=== PATIENT | female | born 1965 | race Caucasian/White ===

== ENCOUNTER 2016-05-21 06:31 | Outpatient (CLI) ==
[2015-07-01 16:47] VITALS: BMI 38.5
--- NOTE | 2016-05-21 09:56 | STRESSECHO ---
Date of Test: 05/21/16 Reason for Exam: CHEST PAIN, HTN, SOB Ordering Physician: KANG JAMES Current Medications: PHENTERMINE, BIAXIN, XANAX, CYTOMEL, VICTOZA, GLUCOPHAGE, LYRICA, HYZAAR Resting EKG: SINUS RHYTHM/NO ACUTE CHANGES Target Heart Rate: 145/171 STAGE MPH/GRADE HEART RATE BLOOD PRESSURE RHYTHM S-T SEGMENT +/- UP DOWN SYMPTOMS,COMMENTS At Rest 90/MIN 122/68 SR X NONE 1 1.7/10% 140/MIN 112/58 SR X NONE 2 2.5/12% 3 3.4/14% 4 4.2/16% 5 5.0/18% Immediately after 160 SR X FATIGUE Durations of Exercise: 5:02 Maximum Heart Rate Reached: 160 Reason for Termination: FATIGUE 2 MIN POST EXERCISE, HR/MIN 118, BP 130/68 INTERPRETATION: 97% OXYGEN SATURATION WITH EXERCISE ON ROOM AIR METS 7.0 1. NO EVIDENCE OF ISCHEMIA BY ST-T WAVE 2. NO CHEST PAIN OR CHEST DISCOMFORT 3. BLOOD PRESSURE RESPONSE: NORMAL 4. NO ARRHYTHMIAS NORMAL LEFT VENTRICULAR CONTRACTILITY--RESTING AND POST EXERCISE MTDD
--- NOTE | 2016-05-21 09:59 | ECHOSTRESS ---
Date of Exam: 05/21/16 Ordering Physician: KANG JAMES Reason for Echo: CHEST PAIN, HTN, SOB, STRESS TEST--NO ISCHEMIA M-Mode Normal Adult Results LV Dimensions Normal Adult Results AoV Opening excursions >1.6 LVEDD-base- 3.5-5.8 Ao root dimensions 2.0-3.7 LVESD-base- 3.1-4.6 L. Atrium dimensions 1.9-3.8 Post. Wall thickness 0.8-1.1 IV septum (thickness) 0.7-1.2 Post. Wall excursion 0.72-1.3 Septal motion Systolic motion R. Ventricular cavity 1.5-2.0 LVEF 60% Paradoxical septal wall motion 2-D: NORMAL LEFT VENTRICULAR CONTRACTILITY--RESTING AND POST EXERCISE M-MODE: MV: AV: TV: PV: CHAMBER SIZE: WALL MOTION: NORMAL LEFT VENTRICULAR CONTRACTILITY--RESTING AND POST EXERCISE PERICARDIUM: INTERPRETATION: 1. NORMAL LEFT VENTRICULAR CONTRACTILITY--RESTING AND POST EXERCISE MTDD
== END 2016-05-21 06:32 | disposition home or self-care (01) ==
LOC: CAR 06:31
PROVIDERS: ATTEND Family Medicine
DX: R07.9 Chest pain, unspecified (principal)

== ENCOUNTER 2017-06-05 15:54 | Emergency (ER) ==
[2017-06-05 16:00] VITALS: BP 166/96; TEMP 98; BMI 38.0
--- NOTE | 2017-06-05 16:31 | DI ---
Exam: Two x-rays of the left forearm. Comparison: None available. Reason for exam: Fall. FINDINGS: No acute fracture or malalignment. The cortices of the left radius and ulna appear intact . No unexplained calcific soft tissue density or radiopaque retained foreign body. Impression: No acute fracture or malalignment is seen in the left radius or ulna.
--- NOTE | 2017-06-05 16:32 | DI ---
Exam: Three x-rays of the left wrist. Comparison: 09/25/2013. Reason for exam: Fall. FINDINGS: Similar appearing osseous densities seen adjacent to the fifth carpal-metacarpal joint spa ce. No new fracture or malalignment is seen. The joint spaces are well maintained. Impression: 1. Similar appearing/increased density adjacent to the fifth carpal-metacarpal joint space has a chr onic appearance. 2. No acute fracture or dislocation is seen.
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
== END 2017-06-05 16:50 | disposition home or self-care (01) ==
LOC: ED 15:54
DX: S63.502A Unspecified sprain of left wrist, initial encounter (principal); W50.0XXA Accidental hit or strike by another person, initial encounter; Y99.0 Civilian activity done for income or pay
CPT/HCPCS: 99283

== ENCOUNTER 2017-06-24 12:15 | Outpatient (CLI) ==
--- NOTE | 2017-06-24 14:27 | MRI ---
EXAM: MRI of the left wrist without contrast COMPARISON: Radiographs of the left forearm, wrist and hand 06/05/2017. HISTORY: Acute pain, injury. TECHNIQUE: Multiplanar noncontrast MR images of the left wrist were acquired using a 1.2 Lorri magne t. The submitted images are moderately limited by patient motion artifact and multiple sequences wer e repeated. FINDINGS: Small well corticated ossification adjacent to the base of the fifth metacarpal as noted o n previous radiographs which may represent sequela of an old avulsion injury or calcific tendonitis. There are mild degenerative changes of the wrist with most pronounced osteophytes at the first carpo metacarpal and scaphoid - trapezium - trapezoid articulations with subchondral cystic change involvin g the trapezoid at that level. No evidence of an acute fracture or osteomyelitis. Small radiocarpal , midcarpal and distal radioulnar joint effusions. No abnormal widening of the scapholunate or lunot riquetral intervals. No evidence of a full-thickness tear of the scapholunate ligament, lunotriquetr al ligament or triangular fibrocartilage disc on this non arthrographic study. Suspected intrasubsta nce degeneration of the triangular fibrocartilage disc. 0.9 x 0.8 x 0.7 cm multi septated T2 hyperin tense lesion along the volar aspect the radioscaphoid articulation and radial styloid which suggest a small ganglion/synovial cyst. Extensor carpi ulnaris tendinosis with trace tenosynovitis and some e lupe throughout the adjacent soft tissues. Mild thinning/flattening of the tendon at the level of th e ulnar styloid related to degenerative fraying/chronic partial tear without a full-thickness tendon tear or tendon retraction. Trace extensor carpi radialis longus/brevis tendinosis. Mild changes of DeQuervain's tenosynovitis with mild tendinosis and tenosynovitis of the abductor pollicis longus and extensor pollicis brevis at the first dorsal extensor compartment. Mild thickening hyperintense sign al of the median nerve. The carpal tunnel. Correlate for signs of carpal tunnel syndrome. 0.7 x 0.6 cm focus of T2 hyperintense signal associated with the extensor digitorum tendon slips at a position 2.8 cm proximal to the radiocarpal articulation suggesting tenosynovitis or small ganglion/synovial cyst. Low-level subcutaneous edema dorsally. IMPRESSION: 1. No acute osseous abnormality. Mild degenerative changes of the wrist as described. 2. Small joint effusions, nonspecific. 3. Small ganglion/synovial cyst along the volar aspect the radioscaphoid articulation. Tenosynoviti s versus small ganglion/synovial cyst along the extensor digitorum at the level of the distal forearm as described. 4. Well corticated ossification adjacent to the base of the fifth metacarpal as noted on previous ra diographs which may represent sequela of old trauma or calcific tendonitis. 5. Extensor carpi ulnaris tendinosis with trace tenosynovitis and degenerative fraying/chronic low g rade partial tear. Mild changes of DeQuervain's tenosynovitis. Minimal extensor carpi radialis long us/brevis tenosynovitis. 6. Mild thickening hyperintense signal of the median nerve of the carpal tunnel. Correlate clinical ly for signs of carpal tunnel syndrome.
== END 2017-06-24 12:16 | disposition home or self-care (01) ==
LOC: RAD 12:15
PROVIDERS: ATTEND Family Medicine
DX: M25.532 Pain in left wrist (principal)